=== PATIENT | male | born 1965 | race Caucasian/White ===

== ENCOUNTER 2016-10-05 17:06 | Emergency (ER) | payer MEDICAID ==
[2010-04-06 08:25] VITALS: BMI 32.5
[~2016-10-05 17:06] MED LIST: LISINOPRIL10 MG PO
[2016-10-05 18:47] LABS: APPEARANCE CLEAR (CLEAR); BILIRUBIN NEGATIVE (NEGATIVE); COLOR YELLOW (YELLOW); GLUCOSE NEGATIVE (NEGATIVE); KETONE NEGATIVE (NEGATIVE); LEUKOCYTE ESTERASE NEGATIVE (NEGATIVE); NITRITE NEGATIVE (NEGATIVE); PROTEIN NEGATIVE (NEGATIVE); SPECIFIC GRAVITY 1.025 (1.005-1.020); UROBILINOGEN NORMAL (NORMAL)
[2016-10-05 18:59] LABS: BASOPHILS 0.3 % (0-2); EOSINOPHILS 0.6 % (0-7); HEMATOCRIT 51.5 % (42.0-54.0); HEMOGLOBIN 18.3 g/dL (13.5-17.5); IMMATURE GRANULOCYTES 0.3 % (0-5); LYMPHOCYTES 18.7 % (15-50); MCH 31.7 pg (26.0-34.0); MCHC 35.5 g/dL (31.0-37.0); MCV 89.1 fL (80.0-100.0); MEAN PLATELET VOLUME 13.1 fL (7.4-10.4); MONOCYTES 8.2 % (2-11); NEUTROPHILS 71.9 % (40-80); PLATELET COUNT 143 10x3/uL (130-400); RBC 5.78 10x6/uL (4.20-6.10); RDW 13.2 % (11.5-14.5); WBC 12.5 10x3/uL (4.8-10.8)
[2016-10-05 19:13] LABS: ALBUMIN 4.4 g/dL (3.4-5.0); ANION GAP 14.6 mmol/L (8-16); BILIRUBIN - TOTAL 0.99 mg/dL (0.2-1.3); CALCIUM 9.7 mg/dL (8.5-10.1); CARBON DIOXIDE 25.1 mmol/L (21.0-32.0); CREATININE - SERUM 1.3 mg/dL (0.6-1.3); POTASSIUM - SERUM 3.7 mmol/L (3.5-5.1); PROTEIN - SERUM 8.6 g/dL (6.4-8.2)
== END 2016-10-05 20:09 | disposition home or self-care (01) ==
LOC: D.ER 17:06
PROVIDERS: Emergency Medicine
DX: R10.9 Unspecified abdominal pain (principal); I10 Essential (primary) hypertension

== ENCOUNTER → 2017-03-06 09:03 | Outpatient (CLI) | payer MEDICAID ==
[2010-04-06 08:25] VITALS: BMI 32.5
--- NOTE | ~2017-03-06 | EC ---
PATIENT:EVGENY ORDONEZ DATE OF SERVICE: 03/06/17 SEX: M MEDICAL RECORD: [id number] DATE OF : 67 LOCATION:[facility] AGE OF PATIENT: 51 ADMISSION DATE: 03/06/17 REFERRING PHYSICIAN: INTERPRETING PHYSICIAN: CASSI LEÓN MD ECHOCARDIOGRAM REPORT ECHO CHARGES 4 ECHO COMPLETE CLINICAL DIAGNOSIS: PALPITATIONS ECHOCARDIOGRAPHIC MEASUREMENTS (adult normal given) AC root (d.<3.7cm) 2.8 cm LV Septum d (<1.2 cm> 1.2 cm Valve Excursion 2.0 cm LV Septum (systole) 1.9 cm Left Atria (s.<4.0cm> 4.7 cm LVPW d(<1.2cm) 1.0 cm RV (d.<2.3cm) 3.3 cm LVPW (sytole) 1.8 cm LV diastole(<5.6CM) 5.5 cm MV E-F(>70mm/sec) cm LV systole 2.7 cm LVOT Diameter 1.9 cm MV exc.(>10mm) cm Est.ejection fraction (50-75%) % Pericardial Effusion N DOPPLER: LVIT cm/sec A 39.0 cm/sec E 67.0 cm/sec LA cm/sec RVSP 48.0 mmHg LVOT 110 cm/sec AOP1/2T m/s Asc. Ao 156 cm/sec RVOT 51.0 cm/sec RA cm/sec PA 113 cm/sec AV Gradient Peak 9.8 mmHg AV Mean 4.4 mmHg AV Area 1.9 cm MV Gradient Peak 3.4 mmHg MV Mean 0.90 mmHg MV Area cm COMMENTS: Professor Of Communication And Writing: Esperanza STOUT [place] Supervisor Cleaning And Annealing: Korina León TAPE# PACS DATE OF SERVICE: 03/06/2017 FINDINGS: 1. The left ventricle has normal size, normal function, normal structure with ejection fraction of 60%. No regional wall motion abnormalities. 2. The mitral valve is shown to be normal structurally with trace to mild mitral regurgitation. 3. The aortic valve is normal. 4. The right ventricle is mildly dilated. 5. The aortic valve is normal. ECHOCARDIOGRAM REPORT [id number] EVGENY ORDONEZ 6. The tricuspid valve has mild to moderate tricuspid regurgitation. RVSP is mildly elevated at 40-45 mmHg. 7. Pulmonic valve is normal. 8. There is no pericardial or pleural effusion. CONCLUSIONS: The patient has evidence of mild pulmonary hypertension, mild dilatation of the right-sided structures, otherwise normal echocardiogram. TRANSINT:[id number] Voice Confirmation ID: [id number] DOCUMENT ID: [id number] 03/10/2017 Edited to correct date of service, dmm. CASSI LEÓN MD at 1522 CC: [id number] DICTATION DATE: 03/07/17 1112 PLASTERING SUPERVISOR: 03/07/17 1231 DEP CLI 03/06/17 [id number] [place] [address]
== END | disposition home or self-care (01) ==
LOC: D.ECHO 09:03
DX: R00.2 Palpitations (principal)

== ENCOUNTER → 2020-05-29 08:17 | Outpatient (CLI) | payer MEDICAID ==
[2019-12-24 20:01] VITALS: BMI 29.6
[~2020-05-29 08:17] MED LIST changes: +CLEOCIN HCL150 MG PO; +NORVASC5 MG PO
== END | disposition home or self-care (01) ==
LOC: D.HCCARDIO 08:17
PROVIDERS: ATTEND Internal Medicine Cardiovascular Disease
DX: R07.9 Chest pain, unspecified (principal)